=== PATIENT | female | born 1985 | race Two or more races ===

== ENCOUNTER 2022-04-15 04:04 | Day surgery (SDC) | payer OTHER ==
[2022-04-13 13:34] VITALS: BMI 28.3
[2022-04-15] MEDS ORDERED: SUCCINYLCHOLINE CHLORIDE 200 MG/10 ML SYRINGE ONE (07:25)
[2022-04-15] MEDS ORDERED: FENTANYL CITRATE/PF 50 MCG/ML VIAL ONE (07:25)
[2022-04-15] MEDS ORDERED: PROPOFOL 20 ML ONE (07:25)
[2022-04-15] MEDS ORDERED: MIDAZOLAM HCL 2 MG/2 ML SINGLE DOSE VIAL ONE (07:45)
[2022-04-15] MEDS ORDERED: BUPIVACAINE HCL/PF 0.5% (5MG/ML) 10 ML VIAL ONE ×2 (07:50→08:16)
[2022-04-15] MEDS ORDERED: BUPIVACAINE LIPOSOME/PF (EXPAREL) 266 MG/20 ML VIAL ONE (07:50)
[2022-04-15] MEDS ORDERED: ceFAZolin SODIUM 1 GM VIAL ONE (08:30)
[2022-04-15] MEDS ORDERED: ONDANSETRON 4 MG/2 ML VIAL ONE (08:30)
[2022-04-15] MEDS ORDERED: ceFAZolin 2 GRAM PREMIX BAG IVPB ONE (08:30)
[2022-04-15] MEDS ORDERED: ONDANSETRON 4 MG/2 ML VIAL IVPUSH PRN (08:49)
[2022-04-15] MEDS ORDERED: oxyCODONE HCL 5 MG TABLET PO PRN (08:49)
[2022-04-15] MEDS ORDERED: LACTATED RINGERS SOLUTION 1,000 ML IV SCH (09:00)
[2022-04-15] MEDS ORDERED: oxyCODONE HCL 5 MG TABLET ONE (12:25)
[2022-04-15 12:28] VITALS: RESP 18; TEMP 98
[2022-04-15] MEDS ORDERED: oxyCODONE HCL 5 MG TABLET PO ONE (13:43)
[2022-04-15] MEDS ORDERED: KETOROLAC TROMETHAMINE 30 MG/1 ML VIAL IVPUSH ONE (13:43)
[2022-04-15] MEDS ORDERED: KETOROLAC TROMETHAMINE 30 MG/1 ML VIAL ONE (13:50)
[2022-04-15 14:07] VITALS: BP 136/96; PULSE 68
== END 2022-04-15 14:33 | disposition home or self-care (01) ==
LOC: JASU-SURG 04:04
PROVIDERS: ATTEND Orthopaedic Surgery
PROC: 0MRN4JZ Replacement of Right Knee Bursa and Ligament with Synthetic Substitute, Percutaneous Endoscopic Approach (ICD-10-PCS; 2022-04-15)
PROC: 0YU Anatomical Regions, Lower Extremities, Supplement (ICD-10-PCS; principal; 2022-04-15 08:00)
DX: S83.511A Sprain of anterior cruciate ligament of right knee, initial encounter (principal); S83.281A Other tear of lateral meniscus, current injury, right knee, initial encounter; X58.XXXA Exposure to other specified factors, initial encounter; Y93.9 Activity, unspecified; Y92.9 Unspecified place or not applicable; Y99.9 Unspecified external cause status
CPT/HCPCS: 29881; 29888; L8699; 81025; 94760; 97116-GP; C1713

== ENCOUNTER 2023-05-23 10:12 | Inpatient (IN) | payer SELFPAY ==
[2023-05-23 10:37] VITALS: BMI 24.2
[2023-05-23] MEDS ORDERED: LABETALOL HCL 5 MG/1 ML (100MG/20 ML VIAL) IVPUSH ONE (11:19)
[2023-05-23] MEDS: SODIUM CHLORIDE 1,000 ML IV STA ×2 (11:37→20:27)
[2023-05-23 11:44] LABS: BASO % 0.5 % (0-2.0); EOS % 0.4 % (0-4.5); HEMATOCRIT 37.7 % (32.4-45.2); HEMOGLOBIN 12.4 GM/dL (10.7-15.3); LYMPH % 20.6 % (8-40); MCH 26.8 pg (25.7-33.7); MCHC 32.8 g/dl (32.0-36.0); MEAN CELL VOLUME 81.6 fl (80-96); MEAN PLT VOLUME 8.1 fl (7.5-11.1); MONO % 4.8 % (3.8-10.2); NEUT % 73.7 % (42.8-82.8); PLATELET COUNT 258 10^3/uL (134-434); RBC 4.62 M/mm3 (3.60-5.2); RDW 14.5 % (11.6-15.6); WHITE BLOOD COUNT 10.7 K/mm3 (4.0-10.0)
[2023-05-23 11:50] LABS: INR 1.11 (0.83-1.09); PROTHROMBIN TIME (PATIENT) 12.9 SEC (9.7-13.0)
[2023-05-23 12:03] LABS: POTASSIUM 3.9 mmol/L (3.5-5.1)
[2023-05-23 12:05] LABS: ALBUMIN 3.4 g/dl (3.4-5.0); BLOOD UREA NITROGEN 10.3 mg/dL (7-18); CALCIUM 9.2 mg/dL (8.5-10.1)
[2023-05-23 12:08] LABS: CREATININE 0.6 mg/dL (0.55-1.3)
[2023-05-23 12:10] LABS: BILIRUBIN,TOTAL 0.5 mg/dL (0.2-1); TOT PROT 7.3 g/dl (6.4-8.2)
[2023-05-23] MEDS ORDERED: amLODIPine BESYLATE 5 MG TABLET (FP) PO ONE ×2 (12:26→16:54)
[2023-05-23] MEDS ORDERED: MISOPROSTOL 25 MCG TABLET (COMPOUNDED BY PHARMACY) BUC ONE ×2 (14:34→15:00)
[2023-05-23] MEDS ORDERED: OXYTOCIN 20 UNITS in 0.9% NS 1000 ML INFUS.BAG IV ONE ×2 (14:35→15:00)
[2023-05-23] MEDS ORDERED: amLODIPine BESYLATE 5 MG TABLET (FP) ONE (14:39)
[2023-05-23] MEDS ORDERED: SODIUM CHLORIDE 0.9% 500 ML INFUS.BAG IV ONE (14:43)
[2023-05-23 15:19] LABS: BASO % 0.8 % (0-2.0); EOS % 0.1 % (0-4.5); HEMATOCRIT 31.2 % (32.4-45.2); HEMOGLOBIN 10.2 GM/dL (10.7-15.3); LYMPH % 28.1 % (8-40); MCH 26.9 pg (25.7-33.7); MCHC 32.6 g/dl (32.0-36.0); MEAN CELL VOLUME 82.5 fl (80-96); MEAN PLT VOLUME 8.4 fl (7.5-11.1); MONO % 4.3 % (3.8-10.2); NEUT % 66.7 % (42.8-82.8); PLATELET COUNT 236 10^3/uL (134-434); RBC 3.78 M/mm3 (3.60-5.2); RDW 14.3 % (11.6-15.6); WHITE BLOOD COUNT 14.1 K/mm3 (4.0-10.0)
[2023-05-23] MEDS ORDERED: OXYTOCIN 20 UNITS in 0.9% NS 20 UNIT/1,000 ML INFUS.BAG IV SCH ×2 (15:30→15:43)
[2023-05-23] MEDS ORDERED: ACETAMINOPHEN 1000 MG/100 ML BAG IVPB ONE (16:18)
[2023-05-23] MEDS ORDERED: ACETAMINOPHEN INJECTION 100 ML IVPB ONE (16:37)
[2023-05-23 16:50] LABS: EPI CELLS 11 /uL (0-25.1); HYALINE CASTS 0 /uL (0-3.1); URINE APPEARANCE CLEAR; URINE BACTERIA 15 /uL (0-1359); URINE BILIRUBIN NEGATIVE (NEGATIVE); URINE COLOR ORANGE; URINE GLUCOSE (UA) NEGATIVE (NEGATIVE); URINE KETONE 1+ (NEGATIVE); URINE LEUK ESTERASE TRACE (NEGATIVE); URINE NITRITE NEGATIVE (NEGATIVE); URINE PROTEIN NEGATIVE (NEGATIVE); URINE RBC 3718 /uL (0-23.9); URINE UROBILINOGEN 0.2 mg/dL (0.2-1.0); URINE WBC 15 /uL (0-25.8)
[2023-05-23] MEDS ORDERED: SODIUM CHLORIDE 1,000 ML IV STA (20:46)
[2023-05-23] MEDS ORDERED: ACETAMINOPHEN 1000 MG/100 ML BAG IVPB PRN (20:46)
[2023-05-23 21:17] LABS: BASO % 0.4 % (0-2.0); EOS % 0.1 % (0-4.5); HEMATOCRIT 23.6 % (32.4-45.2); HEMOGLOBIN 7.7 GM/dL (10.7-15.3); LYMPH % 22.4 % (8-40); MCH 26.5 pg (25.7-33.7); MCHC 32.5 g/dl (32.0-36.0); MEAN CELL VOLUME 81.4 fl (80-96); MEAN PLT VOLUME 8.4 fl (7.5-11.1); MONO % 3.8 % (3.8-10.2); NEUT % 73.3 % (42.8-82.8); PLATELET COUNT 271 10^3/uL (134-434); RDW 14.4 % (11.6-15.6); WHITE BLOOD COUNT 20.1 K/mm3 (4.0-10.0)
[2023-05-23] MEDS ORDERED: IBUPROFEN 800 MG/8 ML IJ IVPB PRN (22:31)
[2023-05-24] MEDS ORDERED: PROPOFOL 20 ML ONE (01:54)
[2023-05-24] MEDS ORDERED: ONDANSETRON 4 MG/2 ML VIAL ONE (01:54)
[2023-05-24] MEDS ORDERED: LIDOCAINE HCL/PF 2% SDV 5ML VIAL ONE (01:54)
[2023-05-24] MEDS ORDERED: ONDANSETRON 4 MG/2 ML VIAL IVPUSH PRN ×4 (02:23→03:29)
[2023-05-24] MEDS ORDERED: LACTATED RINGERS SOLUTION 1,000 ML IV SCH (02:30)
[2023-05-24] MEDS ORDERED: ceFAZolin SODIUM 1 GM VIAL IVPB ONE (02:55)
[2023-05-24] MEDS ORDERED: IBUPROFEN 600 MG TABLET (FP) PO PRN ×2 (03:06→03:29)
[2023-05-24] MEDS ORDERED: IBUPROFEN 800 MG/8 ML IJ IVPB PRN ×3 (03:06→03:29)
[2023-05-24] MEDS ORDERED: oxyCODONE HCL 5 MG TABLET PO PRN ×2 (03:06→03:29)
[2023-05-24] MEDS ORDERED: ELECTROLYTE-148 SOLN 1,000 ML IV SCH ×2 (03:15→03:29)
[2023-05-24] MEDS ORDERED: ACETAMINOPHEN 1000 MG/100 ML BAG IVPB PRN (03:29)
[2023-05-24 04:20] VITALS: RESP 18
[2023-05-24 05:22] VITALS: TEMP 98.2
[2023-05-24 08:51] LABS: BASO % 0.3 % (0-2.0); EOS % 0.1 % (0-4.5); HEMATOCRIT 25.5 % (32.4-45.2); HEMOGLOBIN 8.5 GM/dL (10.7-15.3); LYMPH % 25.9 % (8-40); MCH 27.7 pg (25.7-33.7); MCHC 33.4 g/dl (32.0-36.0); MEAN CELL VOLUME 82.9 fl (80-96); MEAN PLT VOLUME 8.5 fl (7.5-11.1); MONO % 6.3 % (3.8-10.2); NEUT % 67.4 % (42.8-82.8); PLATELET COUNT 171 10^3/uL (134-434); RBC 3.07 M/mm3 (3.60-5.2); RDW 15.3 % (11.6-15.6); WHITE BLOOD COUNT 11.3 K/mm3 (4.0-10.0)
[2023-05-24 09:32] VITALS: BP 124/82; PULSE 98
== END 2023-05-24 12:40 | disposition home or self-care (01) | DRG 544 ==
LOC: JER 10:12 → JERBED 18:20 → J3W 20:31
PROVIDERS: ADMIT Obstetrics & Gynecology; ATTEND Obstetrics & Gynecology
PROC: 10D17ZZ Extraction of Products of Conception, Retained, Via Natural or Artificial Opening (ICD-10-PCS; principal; 2023-05-24 02:08)
DX: O03.4 Incomplete spontaneous abortion without complication (principal); R93.9 Diagnostic imaging inconclusive due to excess body fat of patient; I95.1 Orthostatic hypotension; N80.03 Adenomyosis of the uterus
CPT/HCPCS: 36415; 36430; 76817-TC; 80053; 81003; 82550; 84484; 84702; 85025; 85610; 85730; 86850; 86900; 86901; 86922; 87086; 88305-TC; 93005; 93010; 94760; 99285-25; P9038; P9058